=== PATIENT | male | born 1960 | race Caucasian/White ===

== ENCOUNTER → 2020-09-05 | Outpatient (CLI) | payer OTHER ==
[2020-09-05 10:30] VITALS: BP 136/87; PULSE 69; RESP 18; TEMP 98.5
--- NOTE | 2020-09-05 10:54 | P.PAINCN ---
History of Present Illness - Reason for Consult Consult date: 09/05/20 - History of Present Illness This is 60 years old male with a chronic history of severe neck pain, started 15 years ago, patient worked as a construction crew member and he used to do a lot of physical activity, which is affected his cervical spine, patient reports that the intensity of the pain increased over the last several months, the neck pain is constant and increases with any neck movement, he denies any numbness or ti ngling sensation in the upper extremity, he described his pain as aching, nagging pain localized in the cervical area radiating to the shoulder blade and into the triceps muscles, never radiated below the elbow, he denies any motor or sensory deficit, he tried cervical traction with some benefit, and he reports that his pain improved since he stopped working (retired a few weeks ago ) Past Medical History Past Medical History: Chest Pain / Angina, Skin Disorder Additional Past Medical History / Comment(s): Psoriatic arthritis History of Any Multi-Drug Resistant Organisms: None Reported Past Surgical History: Adenoidectomy, Orthopedic Surgery, Tonsillectomy Past Anesthesia/Blood Transfusion Reactions: No Reported Reaction Smoking Status: Never smoker Medications and Allergies Allergies Allergy/AdvReac Type Severity Reaction Status Date / Time No Known Allergies Allergy Verified 09/05/20 10:15 Physical Exam Vitals: Vital Signs Temp Pulse Resp BP Pulse Ox 09/05/20 10:20 98.5 F 69 18 136/87 98 Intake and Output 09/04/20 09/05/20 09/05/20 22:59 06:59 14:59 Other: Weight 91.138 kg Physical Examinations : -Constitutiona : Cooperative , not in acute distress . -HEENT : nech : supple , no Lymphadenopathy , normal thyroid size . : eyes : no ptosis , no icterus, no photophobia . - neurologic : Cranial nerve II to XII intact , no focal neurological deffecit . -psychatric : alert , oriented X 3 , appropriate affect , intact judgment and insight . -Lymphatic : no Lymphadenopathy . - musculoskeltal : Cervical Spine motor stregnth in the deltoid and biceps, normal right side , normal Left side motor stregnth biceps and the wrist extensors normal right side ,normal left side . motor stregnth in the triceps muscle . normal Right side , normal Left side deep tendon reflexes normal at the biceps , normal at Brachioradialis , normal at triceps. cervical facet loading test= Positive Bilaterally Spurling test= positive bilaterally. Neck distraction test= positive bilaterally. Ulises sign= positive bilaterally. Pain with rotation and pronation of the right shoulder Lumber spine moter stegnth lower extremities ,thigh and legs 5/5 Right side , 5/5 Left side Left . Results Comments: MRI of the cervical spine C4 5 facet degeneration and mild to moderate bilateral neuroforaminal narrowing C5 6 disc protrusion , C6 7 cervical spondylosis and bilateral foraminal narrowing Assessment and Plan Plan: Assessment and plan=1-cervical degenerative disc disease. 2-cervical foraminal stenosis. 3-cervical spondylosis with cervical facet arthropathy without myelopathy. Patient could benefit from cervical epidural steroid injection at C7-T1 , discussed this option with the patient patient reported that Currently his pain improved after he stopped worki ng and he preferred not to do any intervention pain management, In the future patient can call us , if the pain increased and we can schedule him to have some cervical epidural steroid injection at C7-T1 Time with Patient: Greater than 30 PQRS Measure Charge Sheet Measure #130: Documentation of Current Meds in Medical Chart: Patient's medications documented in chart Measure #226: Tobacco Use: Screen & Cessation Intervention: Pt not a tobacco user Measure #111: Pneumonia Vaccination: Pneumococcal vaccine NOT administered or previously given Measure #47: Advance Care Plan: Advance care planning discussed & documented, pt chose/unable to give Measure #412: Opioid Treatment Agreement: No documentation of signed opioid treatment agreement Measure #408: Opioid Therapy Follow-up Evaluation: Patient had NO f/u eval minimum every 3 months during opioid therapy Measure #317: Preventitive Care & Scrn High Bld Press & F/U: Normal blood pressure, f/u not required Measure #128: Body Mass Index (BMI) Screening & Follow-up: BMI documented ABOVE normal parameters - f/u documented Measure #131: Pain Assessment & Follow-up: Pain positive & plan documented, Follow-up scheduled Measure #431: Unhealthy Alcohol Use Preventative Care & Scrn: Patient not identified as an unhealthy alcohol user PQRS Narrative: Blood Pressure 136/87 Pain Intensity [Neck] 3 Scale Used Numeric (1 - 10) Hx Alcohol Use (MH) No: Rare
== END | disposition home or self-care (01) ==
LOC: PNWHC3 10:08
PROVIDERS: ATTEND Specialist
DX: M48.02 Spinal stenosis, cervical region (principal); M50.30 Other cervical disc degeneration, unspecified cervical region; M47.812 Spondylosis without myelopathy or radiculopathy, cervical region
CPT/HCPCS: 99201

== ENCOUNTER → 2023-09-19 | Outpatient (CLI) | payer BC, OTHER ==
--- NOTE | 2023-09-19 11:55 | NM ---
EXAMINATION TYPE: NM stress cardiolite complete DATE OF EXAM: 09/19/2023 COMPARISON: NONE CLINICAL INDICATION: Male, 63 years old with history of I25.10 atherosclerotic heart disease; TECHNIQUE: After the intravenous administration of 8.4 mCi Tc 99m Sestamibi - Rest images obtained 4 5 minutes post injection. The patient exercised using a KOLE protocol and 1 minute prior to peak e xercise was injected with 24.9 mCi Tc 99m Sestamibi - Stress images obtained 40 minutes post injectio n. FINDINGS: Targeted heart rate was achieved during performance of the study. Review of stress and rest SPECT bo ges demonstrates no distinct perfusion abnormality. Gated analysis shows normal wall motion with an estimated left ventricular ejection fraction of 42 %. IMPRESSION: No scintigraphic evidence for reversible ischemia
--- NOTE | 2023-09-19 12:17 | CA ---
Exercise Nuclear Stress Test Report Name: Baltazar Lyons Exam Date: 09/19/2023 10:35 Exam Location: [place] Stress Ht (in): 69 Wt (lb): 195 BSA: 2.04 Ordering Phys: Esequiel Royal MD Referring Phys: ESEQUIEL ROYAL,, Technologist: LEIGH,, Age: 63 Gender: M : 1960 Procedure CPT: Indications: I25.10 Atherosclerotic heart disease ICD-10 Codes: Patient History: ASCAD and hypercholesterolemia Medications: Meds past 24 hrs: Pretest Chest Pain: STRESS TEST Boaz Protocol Exercise Duration (min:sec): 10:[address] Depressions (mm): Angina Score: Ward Score: Resting HR (bpm): 60 Peak HR (bpm): 144 Resting BP (mmHg): 158 / 97 Peak BP (mmHg): 228 / 97 MPHR: 156 Target HR: 133 % MPHR: 92 METS: 12.1 Total Dose: Peak Dose: Atropine: Double Product: 63099 BP Response: Stress Termination: Reached target heart rate Stress Symptoms: No chest pain or symptoms Stress Summary: ECG ANALYSIS Resting ECG: Stress ECG: CONCLUSIONS Excellent exercise tolerance Normal EKG in response to exercise Dr. Yuri Wolf MD (Electronically Signed) Final Date: 19 September 2023 12:16
== END | disposition home or self-care (01) ==
LOC: RADNMMAIN 08:11
PROVIDERS: ATTEND Internal Medicine
DX: I25.10 Atherosclerotic heart disease of native coronary artery without angina pectoris (principal)
CPT/HCPCS: 93017; 78452; A9500